=== PATIENT | male | born 1945 | race Caucasian/White ===

== ENCOUNTER 2016-09-23 08:48 | Outpatient (CLI) | payer MEDICARE, OTHER | END 2016-09-23 08:49 | DX: I10 Essential (primary) hypertension (principal); Z12.5 Encounter for screening for malignant neoplasm of prostate; Z79.899 Other long term (current) drug therapy; Z72.89 Other problems related to lifestyle | CPT/HCPCS: 80053; 84443; 85025; 86803; G0103 ==

== ENCOUNTER 2017-04-14 13:27 | Outpatient (CLI) | payer MEDICARE, OTHER ==
[2017-04-14 19:46] LABS: PSA FREE 0.279 ng/mL (0.16-2.81)
[2017-04-14 19:47] LABS: PSA TOTAL 1.529 ng/mL (0.000-2.000)
== END 2017-04-14 13:28 | disposition home or self-care (01) ==
LOC: LAB.R 13:27
PROVIDERS: ATTEND Internal Medicine
DX: R97.20 Elevated prostate specific antigen [PSA] (principal)
CPT/HCPCS: 84154

== ENCOUNTER 2017-10-07 09:18 | Outpatient (CLI) | payer MEDICARE, OTHER ==
[2017-10-07 11:27] LABS: BASOPHILS # (AUTO) 0.1 10^3/uL (0.0-0.1); BASOPHILS % (AUTO) 1.2 %; EOSINOPHILS # (AUTO) 0.3 10^3/uL (0.0-0.7); EOSINOPHILS % (AUTO) 6.3 %; HGB - HEMOGLOBIN 13.3 g/dL (14.0-18.0); LYMPHOCYTES # (AUTO) 1.2 10^3/uL (1.5-3.5); LYMPHOCYTES % (AUTO) 26.9 %; MEAN CORPUSCULAR HEMOGLOBIN 33.2 pg (27.0-31.0); MEAN CORPUSCULAR HGB CONC 33.6 g/dL (32.0-36.0); MEAN CORPUSCULAR VOLUME 98.6 fL (80.0-94.0); MEAN PLATELET VOLUME 7.6 fL (7.4-11.4); MONOCYTES # (AUTO) 0.4 10^3/uL (0.0-1.0); MONOCYTES % (AUTO) 10.1 %; NEUTROPHILS # (AUTO) 2.4 10^3/uL (1.5-6.6); NEUTROPHILS % (AUTO) 55.5 %; PLT - PLATELET COUNT 325 10^3/uL (130-450); RED CELL DISTRIBUTION WIDTH 14.1 % (12.0-15.0); WHITE BLOOD COUNT 4.4 x10^3/uL (4.8-10.8)
[2017-10-07 11:43] LABS: ALBUMIN 4.3 g/dL (3.2-5.5); ALBUMIN/GLOBULIN RATIO 1.7 (1.0-2.2); ALKALINE PHOSPHATASE 43 IU/L (42-121); ALT ALANINE AMINOTRANSFERASE 13 IU/L (10-60); AST ASPARTATE AMINOTRANSFERASE 18 IU/L (10-42); BILIRUBIN,TOTAL 1.4 mg/dL (0.2-1.0); BUN - BLOOD UREA NITROGEN 19 mg/dL (6-20); CALCIUM 9.2 mg/dL (8.5-10.3); CARBON DIOXIDE - CO2 25 mmol/L (21-32); CHLORIDE 101 mmol/L (101-111); CHOL/HDL RATIO 2.8 (<5.0); CHOLESTEROL 208 mg/dL; CREATININE 0.8 mg/dL (0.6-1.2); GFR - MDRD 95 (>89); GLUCOSE 98 mg/dL (70-100); HDL CHOLESTEROL 74 mg/dL; LDL CHOLESTEROL,CALCULATED 116 mg/dL; LDL/HDL RATIO 1.6 (<3.6); SODIUM 135 mmol/L (135-145); TOTAL PROTEIN 6.8 g/dL (6.7-8.2); VLDL CHOLESTEROL 18 mg/dL
[2017-10-07 11:48] LABS: PSA FREE 0.3 ng/mL (0.16-2.81)
[2017-10-07 11:49] LABS: PSA TOTAL 1.57 ng/mL (0.000-2.000)
== END 2017-10-07 09:19 | disposition home or self-care (01) ==
LOC: LAB.R 09:18
PROVIDERS: ATTEND Internal Medicine
DX: R97.20 Elevated prostate specific antigen [PSA] (principal); Z13.6 Encounter for screening for cardiovascular disorders; E80.4 Gilbert syndrome; I10 Essential (primary) hypertension; Z79.899 Other long term (current) drug therapy
CPT/HCPCS: 80053; 80061; 83721; 84154; 85025

== ENCOUNTER 2017-12-09 08:00 | Outpatient (CLI) | payer MEDICARE, OTHER ==
[2017-12-09 15:21] LABS: ALT ALANINE AMINOTRANSFERASE 20 IU/L (10-60); AST ASPARTATE AMINOTRANSFERASE 23 IU/L (10-42); LDL CHOLESTEROL,DIRECT 42 mg/dL
== END 2017-12-09 08:01 ==
LOC: LAB.R 08:00
PROVIDERS: ATTEND Internal Medicine
DX: E78.2 Mixed hyperlipidemia (principal)
CPT/HCPCS: 83721; 84450; 84460

== ENCOUNTER 2018-09-10 08:00 | Outpatient (CLI) | payer MEDICARE, OTHER ==
[2018-09-10 13:05] LABS: BASOPHILS % (AUTO) 1.1 %; EOSINOPHILS # (AUTO) 0.2 10^3/uL (0.0-0.7); EOSINOPHILS % (AUTO) 4.7 %; HGB - HEMOGLOBIN 12.9 g/dL (14.0-18.0); LYMPHOCYTES # (AUTO) 1.3 10^3/uL (1.5-3.5); LYMPHOCYTES % (AUTO) 31.3 %; MEAN CORPUSCULAR HEMOGLOBIN 33.8 pg (27.0-31.0); MEAN CORPUSCULAR HGB CONC 34.9 g/dL (32.0-36.0); MEAN CORPUSCULAR VOLUME 96.8 fL (80.0-94.0); MEAN PLATELET VOLUME 7.7 fL (7.4-11.4); MONOCYTES # (AUTO) 0.4 10^3/uL (0.0-1.0); MONOCYTES % (AUTO) 10.4 %; NEUTROPHILS # (AUTO) 2.3 10^3/uL (1.5-6.6); NEUTROPHILS % (AUTO) 52.5 %; PLT - PLATELET COUNT 288 10^3/uL (130-450); RED CELL DISTRIBUTION WIDTH 13.9 % (12.0-15.0); WHITE BLOOD COUNT 4.3 x10^3/uL (4.8-10.8)
[2018-09-10 13:15] LABS: ALBUMIN 4.2 g/dL (3.2-5.5); ALBUMIN/GLOBULIN RATIO 1.7 (1.0-2.2); ALKALINE PHOSPHATASE 41 IU/L (42-121); ALT ALANINE AMINOTRANSFERASE 22 IU/L (10-60); AST ASPARTATE AMINOTRANSFERASE 25 IU/L (10-42); BILIRUBIN,TOTAL 1.9 mg/dL (0.2-1.0); BUN - BLOOD UREA NITROGEN 24 mg/dL (6-20); CALCIUM 8.8 mg/dL (8.5-10.3); CARBON DIOXIDE - CO2 28 mmol/L (21-32); CHLORIDE 101 mmol/L (101-111); CHOL/HDL RATIO 1.5 (<5.0); CHOLESTEROL 135 mg/dL; CREATININE 0.9 mg/dL (0.6-1.2); GFR - MDRD 83 (>89); GLUCOSE 106 mg/dL (70-100); HDL CHOLESTEROL 89 mg/dL; SODIUM 135 mmol/L (135-145); TOTAL PROTEIN 6.7 g/dL (6.7-8.2)
[2018-09-10 13:20] LABS: PSA FREE 0.25 ng/mL (0.16-2.81)
[2018-09-10 13:21] LABS: PSA TOTAL 1.53 ng/mL (0.000-2.000)
[2018-09-10 14:14] LABS: LDL CHOLESTEROL,DIRECT 35 mg/dL; LDLD/HDL RATIO 0.4 (<3.6)
== END 2018-09-10 23:59 | disposition home or self-care (01) ==
LOC: LAB.R 08:00
PROVIDERS: ATTEND Internal Medicine
DX: D64.9 Anemia, unspecified (principal); E78.5 Hyperlipidemia, unspecified; Z12.5 Encounter for screening for malignant neoplasm of prostate; E80.4 Gilbert syndrome; I10 Essential (primary) hypertension; Z79.899 Other long term (current) drug therapy; R97.20 Elevated prostate specific antigen [PSA]
CPT/HCPCS: 80053; 80061; 83721; 84153; 84154; 84443; 85025

== ENCOUNTER 2018-09-18 08:00 | Outpatient (CLI) | payer MEDICARE, OTHER ==
[2018-09-18 14:02] LABS: BASOPHILS # (AUTO) 0.1 10^3/uL (0.0-0.1); BASOPHILS % (AUTO) 1.6 %; EOSINOPHILS # (AUTO) 0.2 10^3/uL (0.0-0.7); EOSINOPHILS % (AUTO) 4.4 %; HGB - HEMOGLOBIN 13.5 g/dL (14.0-18.0); LYMPHOCYTES # (AUTO) 1.2 10^3/uL (1.5-3.5); LYMPHOCYTES % (AUTO) 24.5 %; MEAN CORPUSCULAR HEMOGLOBIN 34.2 pg (27.0-31.0); MEAN CORPUSCULAR HGB CONC 34.3 g/dL (32.0-36.0); MEAN CORPUSCULAR VOLUME 99.8 fL (80.0-94.0); MEAN PLATELET VOLUME 7.9 fL (7.4-11.4); MONOCYTES # (AUTO) 0.5 10^3/uL (0.0-1.0); MONOCYTES % (AUTO) 9.4 %; NEUTROPHILS % (AUTO) 60.1 %; PLT - PLATELET COUNT 307 10^3/uL (130-450); RED BLOOD COUNT 3.96 10^6/uL (4.70-6.10); RED CELL DISTRIBUTION WIDTH 14.5 % (12.0-15.0)
[2018-09-18 14:23] LABS: HB2 TOTAL 14.3 g/dL; HEMOGLOBIN A1C 0.54 g/dL; HEMOGLOBIN A1C % 5.6 % (4.6-6.2)
[2018-09-18 14:24] LABS: PLATELET ESTIMATE, MANUAL NORMAL (130-450,000) (NORMAL); PLATELET MORPHOLOGY NORMAL APPEARANCE (NORMAL); RBC MORPHOLOGY (MULTIPLE) NORMAL APPEARANCE (NORMAL)
== END 2018-09-18 23:59 | disposition home or self-care (01) ==
LOC: LAB.R 08:00
PROVIDERS: ATTEND Internal Medicine
DX: D64.9 Anemia, unspecified (principal); R73.9 Hyperglycemia, unspecified
CPT/HCPCS: 83036; 85025

== ENCOUNTER 2021-01-18 08:14 | Outpatient (CLI) | payer MEDICARE, OTHER ==
[2021-01-18] MEDS ORDERED: IOVERSOL 320 100 ML VIAL IVP ONE ×2 (08:36→09:35)
--- NOTE | 2021-01-18 11:59 | CT Report ---
PROCEDURE: ANGIO CHEST W/WO INDICATIONS: Fam Hist of Ascending Aortic Aneurysm CONTRAST: IV CONTRAST: Optiray 320 ml: 100 PO CONTRAST: *NO PO CONTRAST TECHNIQUE: After the administration of intravenous contrast, 2 mm thick sections acquired from the pulmonary api fer to the posterior costophrenic angles. 3-dimensional maximum intensity projection (MIP) coronal a nd sagittal reformats were then acquired through the thorax. For radiation dose reduction, the follow ing was used: automated exposure control, adjustment of mA and/or kV according to patient size. COMPARISON: None FINDINGS: Image quality: Excellent. Aorta: Ascending aorta measures 3.8 cm. There is classic three-vessel arch anatomy. Great vessel orig ins are difficult to evaluate secondary to artifact. Descending thoracic aorta is normal in caliber. Mild celiac origin stenosis. SMA is widely patent. Bilateral renal arteries are widely patent. Pulmonary arteries: Pulmonary arteries are normal in size, and demonstrate no intraluminal filling d efects to suggest central pulmonary embolism. Lungs and pleura: Calcified granuloma, right upper lobe, image 91/7. Calcified granuloma, right upper lobe, image 155/7. Lungs are clear. No pleural effusions or pneumothorax. Central and peripheral airways are patent. Mediastinum: Heart size is normal, without pericardial effusion. At least moderate coronary artery calcifications. No mediastinal or hilar adenopathy. Thoracic aorta is normal in caliber and enhancem ent. Esophagus is normal in caliber, without hiatal hernia. Bones and chest wall: No suspicious bony lesions. Ribs and thoracic spine appear intact throughout. No axillary or supraclavicular adenopathy. The thyroid is normal in size and there are no incident al findings. Abdomen: Visualized upper abdominal solid organs appear normal in the early arterial phase of enhanc ement. IMPRESSION: 1. Normal caliber thoracic aorta without aneurysm or dissection. 2. At least moderate coronary artery disease. 3. Chronic granulomatous disease. CLINICAL RECOMMENDATION STATEMENTS: In patients <35 years with an ITN detected on CT, MRI, or extrathyroidal ultrasound, the Committee re commends further evaluation with dedicated thyroid ultrasound if the nodule is ?1 cm and has no suspi cious imaging features, and if the patient has normal life expectancy. In patients ?35 years with an ITN detected on CT, MRI, or extrathyroidal ultrasound, the Committee re commends further evaluation with dedicated thyroid ultrasound if the nodule is ?1.5 cm and has no kush picious imaging features, and if the patient has normal life expectancy. (ACR, 2014) Reviewed by: Ancelmo Simpson MD on 01/18/2021 10:58 AM DAVON Approved by: Ancelmo Simpson MD on 01/18/2021 10:58 AM DAVON Station ID: [id number]
== END 2021-01-18 08:15 | disposition home or self-care (01) ==
LOC: DI 08:14
PROVIDERS: ATTEND Internal Medicine
DX: Z13.6 Encounter for screening for cardiovascular disorders (principal); Z82.8 Family history of other disabilities and chronic diseases leading to disablement, not elsewhere classified; I25.10 Atherosclerotic heart disease of native coronary artery without angina pectoris
CPT/HCPCS: 71275; Q9967

== ENCOUNTER 2022-08-01 06:59 | Day surgery (SDC) | payer MEDICARE, OTHER ==
[~2022-08-01 06:59] MED LIST: CYCLOPENTOLATE 1% OPHTH DROPS 2 ML ONE; KETOROLAC 0.45% OPHTH DROPS ONE; PHENYLEPHRINE 2.5% OPHTH 2 ML DROPS ONE; PROPARACAINE 0.5% OPHTH DROPS 15 ML ONE
--- NOTE | 2022-08-01 07:03 | ANESTHESIA ---
Pre-Anesthesia VS, & Labs - Diagnosis L senile combined cataract - Procedure L extraction cataract w IOL Height: 6 ft 2 in - NPO >8 hours Home Medications and Allergies Home Medications: Ambulatory Orders Simvastatin [Zocor] 10 mg PO DAILY 07/31/22 Amlodipine Besylate [Norvasc] 5 mg PO BID 03/07/14 Enalapril Maleate [Vasotec] 20 mg PO BID 03/07/14 Simvastatin [Zocor] 10 mg PO DAILY 07/31/22 Allergies/Adverse Reactions: Allergies Allergy/AdvReac Type Severity Reaction Status Date / Time No Known Drug Allergies Allergy Verified 10/25/14 19:02 Anes History & Medical History - Anesthetic History Anesthesia Complications: reports: No previous complications Family history of Anesthesia Complications: Denies Family history of Malignant Hyperthermia: Denies - Medical History Cardiovascular: reports: Hypertension Pulmonary: reports: None Gastrointestinal: reports: None Urinary: reports: Kidney stones Musculoskeletal: reports: None Endocrine/Autoimmune: reports: None Skin: reports: None Smoking Status: Never smoker - Surgical History General: reports: Colonoscopy Urologic: reports: Ureterolithotomy (stones) Orthopedic: reports: Knee replacement Exam General: Alert, Oriented x3, Cooperative Plan Anesthesia Type: Total IV Consent for Procedure(s) Verified and Reviewed: Yes Code Status: Attempt Resuscitation ASA classification: 2-Mild systemic disease Is this case an emergency?: No
[2022-08-01] MEDS ORDERED: LACTATED RINGERS 1,000 ML IV ONE (07:13)
[2022-08-01] MEDS ORDERED: TRIAMCIN/MOXIFLOX OPHTHALMIC 0.6 ML VIAL IO ONE ×2 (07:36→08:07)
[2022-08-01] MEDS ORDERED: VANCOMYCIN OPHTH (TOPICAL) 10 MG/ML SYRINGE ONE (07:37)
[2022-08-01] MEDS ORDERED: BRIMONIDINE 0.2% OPHTH DROPS 5 ML ONE (07:37)
[2022-08-01] MEDS ORDERED: BSS/LIDOCAINE/EPINEPHRINE 1 ML VIAL ONE (07:37)
[2022-08-01] MEDS ORDERED: EPINEPHrine 1 MG/ML AMP ONE (07:37)
[2022-08-01] MEDS ORDERED: TIMOLOL 0.5% OPHTH DROPS ONE (07:37)
[2022-08-01] MEDS ORDERED: MIDAZOLAM 2 MG/2 ML VIAL ONE (07:41)
[2022-08-01] MEDS ORDERED: TIMOLOL 0.5% OPHTH DROPS OPTH ONE (08:06)
[2022-08-01] MEDS ORDERED: EPINEPHrine 1 MG/ML AMP IR ONE (08:06)
[2022-08-01] MEDS ORDERED: BRIMONIDINE 0.2% OPHTH DROPS 5 ML OPTH ONE (08:06)
[2022-08-01] MEDS ORDERED: BSS/LIDOCAINE/EPINEPHRINE 1 ML SYRINGE IO ONE (08:07)
[2022-08-01] MEDS ORDERED: PROPARACAINE 0.5% OPHTH DROPS 15 ML LEFTEYE ONE (08:07)
[2022-08-01] MEDS ORDERED: VANCOMYCIN OPHTH (TOPICAL) 10 MG/ML SYRINGE TOP ONE (08:07)
[2022-08-01] MEDS ORDERED: LACTATED RINGERS 900 ML IV ONE (08:19)
[2022-08-01 08:21] VITALS: BP 123/69
--- NOTE | 2022-08-01 08:27 | OPERATIVE REPORT ---
Operative Report - Other Other Information/Narrative: Date of Surgery: 08/01/22 Preop Dx: Visually significant cataract left eye. This was the first cataract surgery. Postop Dx: Same Procedure: Phacoemulsification with posterior chamber intraocular lens implant left eye Surgeon: Dr. Jun Benitez Anesthesia: Monitored anesthesia care Complications: None Operative Indications: This is a 76-year-old M with progressive vision loss in the left eye due to 3+ nuclear sclerotic and 2+ cortical cataract. Best corrected visual acuity was 20/20 with glare to 20/40 vision in the left eye. Indications for surgery were: - Difficulty seeing words, closed captions, or game scores on TV - Difficulty seeing street signs - Difficulty driving in low light or at night - Difficulty driving at night because of headlights from other vehicles The patient was consented at length concerning the risks and benefits of cataract surgery after which the patient expressed a desire to proceed with surgery. Operative Procedure: The patient was taken into OR#3 and placed under monitored anesthesia care. A surgical time-out was conducted confirming correct patient, correct procedure, and correct surgical site. The patient was given topical anesthesia and then prepped and draped in the usual sterile fashion. The eye was entered at the 6 and 3 oclock positions. Intracameral Shugarcaine was injected into the anterior chamber followed by a dispersive viscoelastic. A continuous-tear curvilinear capsulorhexis was performed. The nucleus was hydrodissected and phacoemulsified. The cortex was evacuated using automated infusion and aspiration. A cohesive viscoelastic was injected into the capsular bag and a 23.5 diopter intraocular lens was inserted into the bag. Infusion and aspiration were used to evacuate the viscoelastic materials from the eye. The wounds were hydrated and the eye inflated to physiologic pressure using balanced salt solution. Approximately 0.25ml of a mixture of triamcinolone and moxifloxacin was injected trans-sclerally into the vitreous in the inferotemporal quadrant using a 30 gauge cannula. An additional 0.55ml of a mixture of triamcinolone and moxifloxacin was injected subconjunctivally in the superior quadrant for infection and inflammation prophylaxis. Wound integrity was checked with Weck-Sandra sponges. The patient was taken from the operating room in good condition and given post-op instructions.
--- NOTE | 2022-08-01 08:35 | ANESTHESIA POST OP EVALUATION ---
Anesthesia Post Eval - Post Anesthesia Eval Vitals: Last Vital Signs Temp 36.7 C 08/01/22 08:16 Pulse 75 08/01/22 08:16 Resp 16 08/01/22 08:16 BP 123/69 08/01/22 08:16 Pulse Ox 367 H 08/01/22 08:16 O2 Flow Rate CV Function Including HR & BP: Stable Pain Control: Satisfactory Nausea & Vomiting: Negative Mental Status: Baseline Respiratory Status: Airway Patent Hydration Status: Satisfactory Anesthesia Complications: None
== END 2022-08-01 07:00 | disposition home or self-care (01) ==
LOC: SDS 06:59
PROVIDERS: ATTEND Ophthalmology
DX: H25.812 Combined forms of age-related cataract, left eye (principal)
CPT/HCPCS: 66984; A9270; J3490; J7120

== ENCOUNTER 2022-09-12 08:13 | Day surgery (SDC) | payer MEDICARE, OTHER ==
[2022-09-12] MEDS ORDERED: LACTATED RINGERS 1,000 ML IV ONE ×2 (08:32→10:35)
[2022-09-12] MEDS ORDERED: TRIAMCIN/MOXIFLOX OPHTHALMIC 0.6 ML VIAL IO ONE ×2 (09:51→10:25)
[2022-09-12] MEDS ORDERED: TIMOLOL 0.5% OPHTH DROPS ONE (09:52)
[2022-09-12] MEDS ORDERED: BSS/LIDOCAINE/EPINEPHRINE 1 ML VIAL ONE (09:52)
[2022-09-12] MEDS ORDERED: VANCOMYCIN OPHTH (TOPICAL) 10 MG/ML SYRINGE ONE (09:52)
[2022-09-12] MEDS ORDERED: EPINEPHrine 1 MG/ML AMP ONE (09:52)
[2022-09-12] MEDS ORDERED: BRIMONIDINE 0.2% OPHTH DROPS 5 ML ONE (09:52)
--- NOTE | 2022-09-12 09:55 | ANESTHESIA ---
Pre-Anesthesia VS, & Labs - Diagnosis righr senile combined cataract - Procedure right cataract extraction with IOL Vital Signs: Temp Pulse Resp BP Pulse Ox O2 Flow Rate 36.7 C 79 16 137/73 H 99 0 09/12/22 08:28 09/12/22 08:28 09/12/22 08:28 09/12/22 08:28 09/12/22 08:28 09/12/22 08:28 Height: 6 ft 1 in Weight (kg): 90 kg Body Mass Index: 26.2 BMI Classification: Overweight - NPO >8 hours Home Medications and Allergies Home Medications: Ambulatory Orders Rosuvastatin Calcium [Ezallor Sprinkle] 10 mg PO DAILY 09/11/22 Amlodipine Besylate [Norvasc] 5 mg PO BID 03/07/14 Enalapril Maleate [Vasotec] 20 mg PO BID 03/07/14 Rosuvastatin Calcium [Ezallor Sprinkle] 10 mg PO DAILY 09/11/22 Allergies/Adverse Reactions: Allergies Allergy/AdvReac Type Severity Reaction Status Date / Time No Known Drug Allergies Allergy Verified 09/11/22 12:02 Anes History & Medical History - Anesthetic History Anesthesia Complications: reports: No previous complications - Medical History Cardiovascular: reports: Hypertension Pulmonary: reports: None Gastrointestinal: reports: None Urinary: reports: Kidney stones Musculoskeletal: reports: None Endocrine/Autoimmune: reports: None Skin: reports: None Smoking Status: Never smoker - Surgical History General: reports: Colonoscopy Eyes Ears Nose Throat (EENT): reports: Cataracts Urologic: reports: Ureterolithotomy (stones) Orthopedic: reports: Knee replacement Exam General: Alert Dental: WNL Mouth Opening: Greater than 4 Fingerbreadths Neck Mobility: Limited Mallampati classification: II Thyromental Distance: greater than 6 cm Respiratory: Lungs clear Cardiovascular: Regular rate, Normal S1, Normal S2 Plan Anesthesia Type: MAC Consent for Procedure(s) Verified and Reviewed: Yes Code Status: Attempt Resuscitation ASA classification: 2-Mild systemic disease Is this case an emergency?: No
[2022-09-12] MEDS ORDERED: MIDAZOLAM 2 MG/2 ML VIAL ONE (09:57)
[2022-09-12] MEDS ORDERED: BSS/LIDOCAINE/EPINEPHRINE 1 ML SYRINGE IO ONE (10:25)
[2022-09-12] MEDS ORDERED: EPINEPHrine 1 MG/ML AMP IR ONE (10:25)
[2022-09-12] MEDS ORDERED: PROPARACAINE 0.5% OPHTH DROPS 15 ML RIGHTEYE ONE (10:25)
[2022-09-12] MEDS ORDERED: TIMOLOL 0.5% OPHTH DROPS OPTH ONE (10:25)
[2022-09-12] MEDS ORDERED: BRIMONIDINE 0.2% OPHTH DROPS 5 ML OPTH ONE (10:25)
[2022-09-12] MEDS ORDERED: VANCOMYCIN OPHTH (TOPICAL) 10 MG/ML SYRINGE TOP ONE (10:26)
--- NOTE | 2022-09-12 10:43 | OPERATIVE REPORT ---
Operative Report - Other Other Information/Narrative: Date of Surgery: 09/12/22 Preop Dx: Visually significant cataract right eye. Cataract surgery was performed in the left eye on . Postop Dx: Same Procedure: Phacoemulsification with posterior chamber intraocular lens implant right eye Surgeon: Dr. Jun Benitez Anesthesia: Monitored anesthesia care Complications: None Operative Indications: This is a 76-year-old M with progressive vision loss in the right eye due to 2-3+ nuclear sclerotic and 3+ cortical cataract. Best corrected visual acuity was 20/25 with glare to 20/40 vision in the right eye. Indications for surgery were: - Difficulty seeing words, closed captions, or game scores on TV - Difficulty seeing street signs - Difficulty driving in low light or at night - Difficulty driving at night because of headlights from other vehicles The patient was consented at length concerning the risks and benefits of cataract surgery after which the patient expressed a desire to proceed with surgery. Operative Procedure: The patient was taken into OR#3 and placed under monitored anesthesia care. A surgical time-out was conducted confirming correct patient, correct procedure, and correct surgical site. The patient was given topical anesthesia and then prepped and draped in the usual sterile fashion. The eye was entered at the 6 and 3 oclock positions. Intracameral Shugarcaine was injected into the anterior chamber followed by a dispersive viscoelastic. A continuous-tear curvilinear capsulorhexis was performed. The nucleus was hydrodissected and phacoemulsified. The cortex was evacuated using automated infusion and aspiration. A cohesive viscoelastic was injected into the capsular bag and a 23.5 diopter intraocular lens was inserted into the bag. Infusion and aspiration were used to evacuate the viscoelastic materials from the eye. The wounds were hydrated and the eye inflated to physiologic pressure using balanced salt solution. Approximately 0.25ml of a mixture of triamcinolone and moxifloxacin was injected trans-sclerally into the vitreous in the inferotemporal quadrant using a 30 gauge cannula. An additional 0.25ml of a mixture of triamcinolone and moxifloxacin was injected subconjunctivally in the superior quadrant for infection and inflammation prophylaxis. Wound integrity was checked with Weck-Sandra sponges. The patient was taken from the operating room in good condition and given post-op instructions.
[2022-09-12 11:14] VITALS: BP 126/78
--- NOTE | 2022-09-12 11:21 | ANESTHESIA POST OP EVALUATION ---
Anesthesia Post Eval - Post Anesthesia Eval Vitals: Last Vital Signs Temp 36.7 C 09/12/22 10:55 Pulse 76 09/12/22 10:55 Resp 16 09/12/22 10:55 BP 126/78 09/12/22 10:55 Pulse Ox 98 09/12/22 10:55 O2 Flow Rate 0 09/12/22 08:28 CV Function Including HR & BP: Stable Pain Control: Satisfactory Nausea & Vomiting: Negative Mental Status: Baseline Respiratory Status: Airway Patent Hydration Status: Satisfactory Anesthesia Complications: None
== END 2022-09-12 08:14 | disposition home or self-care (01) ==
LOC: SDS 08:13
PROVIDERS: ATTEND Ophthalmology
DX: H25.811 Combined forms of age-related cataract, right eye (principal); Z98.42 Cataract extraction status, left eye
CPT/HCPCS: 66984; A9270; J3490; J7120